=== PATIENT | female | born 1995 | race Caucasian/White ===

== ENCOUNTER 2024-11-04 18:22 | Emergency (ER) | payer MEDICAID, OTHER ==
[~2024-11-04] VITALS: Ht 160 cm; Wt 96.2 kg
[2024-11-04 18:53] VITALS: BP 105/68; TEMP 99.1; O2SAT 99
== END 2024-11-04 22:05 | disposition left against medical advice (07) ==
LOC: ER 18:22
DX: R50.9 Fever, unspecified (principal); J35.1 Hypertrophy of tonsils; Z53.21 Procedure and treatment not carried out due to patient leaving prior to being seen by health care provider